=== PATIENT | female | born 1975 | race Caucasian/White ===

== ENCOUNTER 2019-09-12 16:36 | Emergency (ER) | payer MEDICAID, SELFPAY ==
[2019-09-12 16:42] VITALS: BP 159/104; PULSE 69; RESP 20; TEMP 36.9; O2SAT 98
--- NOTE | 2019-09-12 16:49 | ED.GENADUL_ITS ---
Discharge Plan Disposition Patient Disposition: HOME Condition: Stable Discharge Details Chief Complaint: Burn Clinical Impression: Burn Primary Care Provider: Leah Irwin ED Provider: Blair Vasquez Home Meds and New Rx's Prescriptions: New oxycodone 5 mg tablet 5 mg PO TID PRN (Reason: pain) Qty: 12 RF: 0 Discharge Instructions Instructions: Second Degree Burn (ED) Additional Instructions: if you have fevers, severe worsening of pain or spreading redness return to the emergency department you can take 1000mg tylenol and 600mg ibuprofen every 6 hours for pain as needed Medical Decision Making 44 yo female with no chronic medical problems comes in with chief complaint of burn. Was making pasta when water spilled and got on her left arm and abdomen causing superficial partial thicknes. She has 5% bsa of her abdomen and 3% on her left psoterior foremarm. NO joint involvement, normal sensation and pulses. Advised on wound care and return precautions given Differential Diagnosis Differential Diagnosis: superficial burn, partial thickness burn HPI General Mode of arrival: ambulatory . Date/Time Provider Initiated Documentation: 09/12/19 16:37 . Limitations to Documentation: no limitations . Information obtained by: patient . History of Present Illness 44 year old F presents to the emergency department with the chief complaint of burn, described as moderate, and it has been constant. No relieving factors improve symptom(s), No exacerbating factors reported . Related Data Home Medications Medication Instructions Recorded Confirmed oxycodone 5 mg PO TID PRN #12 tab 09/12/19 Previous Rx's Medication Instructions Recorded oxycodone 5 mg PO TID PRN #12 tab 09/12/19 Allergies Allergy/AdvReac Type Severity Reaction Status Date / Time No Known Allergies Allergy Unverified 09/12/19 16:44 General Stated Complaint: Burn KERWIN: 3 Review of Systems All systems reviewed & are unremarkable except as noted in HPI and below Constitutional Constitutional: Denies chills, Denies fever(s) and Denies weakness Cardiovascular Cardiovascular: Denies chest pain and Denies dyspnea Respiratory Respiratory: Denies dyspnea Gastrointestinal Gastrointestinal: Denies abdominal pain, Denies nausea and Denies vomiting Musculoskeletal Musculoskeletal: Denies joint swelling Neurologic Neurologic: Denies weakness PFSH Social History Smoking/Tobacco Use Status: Never Drug use: Never Do you feel safe at home: Yes Do you feel safe in your relationship?: Yes Exam Const General: no acute distress Orientation: alert [facility] Head: normal to inspection Ears: external ears normal General nose exam: external nose normal Mouth: moist mucous membranes Eyes General: appearance normal, both eyes and all related structures Neck Neck: normal visual inspection Resp Effort & Inspection: normal respiratory effort and able to speak in complete sentences Cardio Rate: regular rate Skin General skin exam: elasticity normal Neuro General: alert and oriented x3 Extrem General: normal to inspection Psych Mental Status: mental status grossly normal Course Vital Signs Vital signs: Vital Signs Temperature 36.9 C 09/12/19 16:42 Pulse 69 09/12/19 16:42 Respiratory Rate 20 09/12/19 16:42 Blood Pressure 159/104 H 09/12/19 16:42 Pulse Oximetry 98 09/12/19 16:42 Temperature 36.9 C 09/12/19 16:42 Temperature Source Skin 09/12/19 16:42 Pulse 69 09/12/19 16:42 Respiratory Rate 20 09/12/19 16:42 Blood Pressure 159/104 H 09/12/19 16:42 Pulse Oximetry 98 09/12/19 16:42 Oxygen Delivery Method Room Air 09/12/19 16:42 Oxygen Flow Rate 0 09/12/19 16:42 Pain Level 7 09/12/19 16:42
[2019-09-12] MEDS: oxyCODONE 5 MG TAB PO (17:02)
== END 2019-09-12 17:13 | disposition home or self-care (01) ==
PROVIDERS: Emergency Provider Emergency Medicine; PCP Family Medicine
DX: T21.22XA Burn of second degree of abdominal wall, initial encounter (principal); T22.212A Burn of second degree of left forearm, initial encounter; T31.0 Burns involving less than 10% of body surface; X11.8XXA Contact with other hot tap-water, initial encounter
CPT/HCPCS: 16020

== ENCOUNTER 2021-02-28 13:54 | Outpatient (REF) | payer MEDICAID, SELFPAY ==
[2021-02-28 16:10] LABS: Anion Gap 9.8 mmol/L (3-11); BUN 12 mg/dL (7-18); CO2 25.2 mmol/L (21.0-32.0); CREATININE 0.7 mg/dL (0.55-1.02); Calcium 8.8 mg/dL (8.5-10.1); Calculated LDL 112 mg/dL (<100); Chloride 104 mmol/L (98-107); Cholesterol 170 mg/dL (<200); Glucose 96 mg/dL (74-106); HDL Cholesterol 39 mg/dL (40-60); Potassium 4.2 mmol/L (3.5-5.1); Sodium 139 mmol/L (136-145); Triglyceride 96 mg/dL (<150)
[2021-02-28 16:24] LABS: Hemoglobin A1C 5.7 % (<5.7)
== END 2021-02-28 13:55 | disposition home or self-care (01) ==
LOC: NCHCN 13:54
PROVIDERS: PCP Family Medicine; Visit Provider Family Medicine
DX: R73.03 Prediabetes (principal); E66.9 Obesity, unspecified
CPT/HCPCS: 80048; 80061; 83036

== ENCOUNTER 2021-03-07 15:58 | Outpatient (REF) | payer MEDICAID, SELFPAY ==
[2021-03-07 17:22] LABS: HCT 41.3 % (36.0-46.0); MCHC 33.9 % (32.0-36.0); MCV 88.6 fL (80-95); MPV 10.4 fL (8.0-11.0); Platelet Count 325 10^3/uL (130-400); RBC 4.66 10^6/uL (3.93-5.22); RDW 12.4 % (11.7-14.6); RDW-SD 40.4 fL; WBC 9.69 10^3/uL (4.4-10.8)
[2021-03-07 17:43] LABS: Ferritin 96 ng/mL (8-252)
== END 2021-03-07 15:59 | disposition home or self-care (01) ==
LOC: NCHCN 15:58
PROVIDERS: PCP Family Medicine; Visit Provider Family Medicine
DX: N92.0 Excessive and frequent menstruation with regular cycle (principal)
CPT/HCPCS: 85027; 82728

== ENCOUNTER 2021-06-20 14:27 | Outpatient (REF) | payer MEDICAID, SELFPAY ==
[2021-06-20 18:56] LABS: TSH (W/Ref FT4) 1.05 uIU/mL (0.36-3.74)
== END 2021-06-20 14:28 | disposition home or self-care (01) ==
LOC: NCHCN 14:27
PROVIDERS: PCP Family Medicine; Visit Provider Family Medicine
DX: R63.5 Abnormal weight gain (principal)
CPT/HCPCS: 84443

== ENCOUNTER 2021-10-07 08:14 | Outpatient (CLI) | payer MEDICAID, SELFPAY ==
--- NOTE | 2021-10-07 | DI.US_ITS ---
Exam(s) US PELVIS TRANSVAGINAL EXAM: US PELVIS TRANSVAGINAL CLINICAL HISTORY: MENORRHAGIA, N92.0,DYSFUNCTIONAL UTERINE BLEEDING, N93.8. TECHNIQUE: Transabdominal and transvaginal pelvic ultrasound was performed using standard protocol. COMPARISON: US PELVIS TRANSVAG from 11/04/2016 FINDINGS: KIDNEYS: Kidneys are symmetric in size. No evidence of renal calculi. No evidence of hydronephrosis. No renal mass or cyst identified. UTERUS: Position: Anteverted. Size: 8.3 long by 4.9 AP by 5.5 transverse cm Endometrium: 0.5 cm. Normal for patient's menstrual status. Myometrium: Unremarkable. Cervix: 6 mm nabothian cyst. OVARIES: Right: 2.1 x 1.5 x 1.9 cm Cyst or mass: There is a 2 x 1.2 x 1.5 cm simple right paraovarian cyst. Left: 2.8 x 1 x 1.9 cm Cyst or mass: Small functional cysts are present. DOPPLER: Color: Symmetric and uniform flow to both ovaries. No hyperemia. Duplex: Normal ovarian arterial waveforms visualized. CUL-DE-SAC: Free fluid: None. Other: None. IMPRESSION: 1. Normal sonographic appearance of the kidneys. 2. Normal-appearing uterus with endometrial stripe within normal limits. 3. 2 cm simple right paraovarian cyst. DATA REPOSITORY:
== END 2021-10-07 08:34 ==
PROVIDERS: PCP Family Medicine; Visit Provider Physician Assistant Medical
DX: N92.0 Excessive and frequent menstruation with regular cycle (principal); N93.8 Other specified abnormal uterine and vaginal bleeding; N83.291 Other ovarian cyst, right side
CPT/HCPCS: 76830; 76856

== ENCOUNTER 2022-02-24 01:59 | Outpatient (CLI) | payer MEDICAID, SELFPAY ==
[2022-02-24 09:11] LABS: HGB 13.9 g/dL (11.2-15.7); MCH 29.8 pg (27.0-33.0); MCHC 33.1 % (32.0-36.0); MCV 90 fL (80-95); MPV 10.2 fL (8.0-11.0); Platelet Count 267 10^3/uL (130-400); RBC 4.67 10^6/uL (3.93-5.22); RDW 12.6 % (11.7-14.6); RDW-SD 41.1 fL; WBC 11.02 10^3/uL (4.4-10.8)
[2022-02-24 09:23] LABS: Source Nasal/Nares
[2022-02-24 12:59] LABS: COVID-19 PCR Negative (Negative)
== END 2022-02-24 02:00 | disposition home or self-care (01) ==
LOC: LBO 01:59
PROVIDERS: PCP Family Medicine; Visit Provider Obstetrics & Gynecology
DX: N92.4 Excessive bleeding in the premenopausal period; Z20.822 Contact with and (suspected) exposure to COVID-19; Z01.818 Encounter for other preprocedural examination; Z01.812 Encounter for preprocedural laboratory examination
CPT/HCPCS: 36415; 85027; 87635; 85014; 85018

== ENCOUNTER 2022-02-26 07:39 | Day surgery (SDC) | payer MEDICAID, SELFPAY ==
[2022-02-26 07:40] VITALS: BP 114/80; PULSE 72; RESP 18; TEMP 36.5; O2SAT 99
[2022-02-26] MEDS: Lactated Ringers 1,000 ML 125 ML IV (08:21)
--- NOTE | 2022-02-26 08:32 | ANES.PREOP_ITS ---
General Info Date of Service Date Performed: 02/26/22 Height: 4 ft 11 in Weight: 97.5 kg Body Mass Index (BMI): 43.4 Surgical Procedure: Operation Date: 02/26/22 09:10 Proposed Procedure Side Surgeon p Dilation & Curettage with Hysteroscopy Janell Shah MD s Endometrial Ablation Novasure Janell Shah MD Meds Allergies and Home Medications Allergies Allergy/AdvReac Type Severity Reaction Status Date / Time No Known Allergies Allergy Unverified 02/26/22 07:10 Home Medication Medication Instructions Recorded ibuprofen 800 mg tablet 800 mg PO Q8H #60 tab 02/06/22 Current Visit Medications: Current Medications Generic Name Dose Route Start Last Admin Trade Name Freq PRN Reason Stop Dose Admin Ringer's Solution 1,000 mls @ 125 mls/hr 02/26/22 06:00 02/26/22 08:21 IV 03/27/22 23:59 125 mls/hr INFUSION LOUISE Administration IV Miscellaneous Supplies 1 each 02/26/22 06:00 Iv Access IV 03/27/22 23:59 DIRECTED LOUISE Sodium Chloride 0 ml 02/26/22 06:00 Normal Saline Flush 10 Ml Syr IV 03/27/22 23:59 PRN PRN Sodium Chloride 0 ml 02/26/22 06:00 Normal Saline 10 Ml Vial IJ 03/27/22 23:59 DIRECTED PRN Sterile Water 0 ml 02/26/22 06:00 Water,Injection,Sterile 10 Ml Vial IJ 03/27/22 23:59 DIRECTED PRN PFSH Active Problems Active Problems: Problem Status Onset Code Perimenopausal menorrhagia N92.4 Medical History Medical History Cyst of left ovary Surgical History Surgical History H/O dilation and curettage H/O tubal ligation History of cholecystectomy Hx of tonsillectomy Tobacco Smoking/Tobacco Use Status: Never Alcohol Alcohol Intake: never Substance Use Substance use: Never Substance use type: does not use Prental History History 2 Para Hx # Term Pregnancies 2 Multiple births Hx # Pregnancies Ectopic pregnancies AB induced Hx Number of Living Children AB spontaneous Past Pregnancies Del. Date GA/Weeks # Outcome Route Wgt Sex Labor Lgth Anesthes ia Location Prov Complic 02/26/02 42 No Successful vaginal 4025.632 g Male 1.[address] Irwin 07/09/15 40 No Successful vaginal 3572.04 g Female [address] Irwin Delivery Date: 02/26/02 Last Updated by: Liz Donis no complications delivered at [facility] Delivery Date: 07/09/15 Last Updated by: Liz Donis no complications, delivered at [facility] Vital Signs and Lab Results Vital Signs Most Recent Vital Signs in EMR: Most Recent Vital Signs Temp Pulse Resp BP Pulse Ox 36.5 C 72 18 114/80 99 02/26/22 07:40 02/26/22 07:40 02/26/22 07:40 02/26/22 07:40 02/26/22 07:40 Point of Care Results Point of Care Results: POC- Test(urine) Positive 02/26/22 08:14 Lab Results Blood Type / Crossmatch: No Data to Display Complete Blood Count: White Blood Count 11.02 10^3/uL (4.4-10.8) H 02/24/22 08:43 02/24/22 Red Blood Count 4.67 10^6/uL (3.93-5.22) 02/24/22 08:43 02/24/22 Hemoglobin 13.9 g/dL (11.2-15.7) 02/24/22 08:43 02/24/22 Hematocrit 42.0 % (36.0-46.0) 02/24/22 08:43 02/24/22 Platelet Count 267 10^3/uL (130-400) 02/24/22 08:43 02/24/22 Complete Metabolic Panel: No Data to Display Liver Function Panel: No Data to Display Coagulation Panel: No Data to Display Cardiac Panel: No Data to Display Arterial Blood Gas: No Data to Display Venous Blood Gas: No Data to Display Pancreas Panel: No Data to Display Thyroid Panel: No Data to Display Infectious Disease: Coronavirus (COVID-19)(PCR) Negative (Negative) 02/24/22 09:04 02/24/22 Coronavirus 2019 Source Nasal/Nares 02/24/22 09:04 02/24/22 Blood Cultures: No Data to Display Toxicology Panel: No Data to Display Panel: No Data to Display Anesthesia Assessment and Plan Anesthesia History Personal History: No History of Anesthesia Complications Family History: No Family History of Anesthesia Complications Exercise Tolerance Exercise Tolerance: Metabolic Equivalents>4 Pertinent Negatives Pertinent Negatives: No Symptoms of GERD, No Major Cardiovascular Symptoms or Complaints, No Major Pulmonary Symptoms or Complaints and No History of CVA/TIA Cardiac & Pulmonary Exam Cardiac Exam: Normal S1/S2 Heart Sounds Pulmonary Exam: Clear Bilateral Breath Sounds Implantable Cardiac Device Does patient have a Pacemaker or an ICD?: No Airway Exam Known Difficult Airway: No Mallampati Class: 2 Mouth Opening: Normal (> 3cm) Thyromental Distance: Greater than 3 cm Neck Range of Motion: Full ROM Neck Circumference: Normal Teeth Condition: Normal Dentition ASA Classification ASA Score: ASA 3 Emergency Case?: No NPO Status NPO Status: NPO Clears >2 hours, Solids >8 hours Status Status: Not Relevant due to Medical History Anesthesia Plan Resuscitation Status: Full Code Anesthesia Technique: General Anesthesia Airway Planned: Natural Airway Monitors Used: Standard Monitors
--- NOTE | 2022-02-26 10:08 | ENDOMET_PTH ---
PATIENT: Jenny Viveros LOC: [facility] U#:[id number] AGE/SX: 46/F ROOM: RE02/26/[address]: Janell Shah MD : [id number] BED: DIS: 02/26/2022 SPEC #: [id number] RECD: 02/26/22 11:46 STATUS: ERIN REQ #: [id number] MIAN: 02/26/22 10:[address]: Janell Shah DEPT: Surgical Specimen RECD BY: Jose Roberto Ramírez ENTERED: 02/26/22 11:47 SP TYPE: Endomet OTHR DR: Leah Irwin Tissues: 1 - ENDOMETRIUM BX/INDU Procedures: GROSS AND MICRO LEVEL 4 Comments: [id number]
[2022-02-26 10:30] VITALS: BP 123/76; PULSE 75; RESP 16; TEMP 36; O2SAT 94
--- NOTE | 2022-02-26 10:32 | ROE_ITS ---
Operative Note Operative Note DATE OF PROCEDURE: 02/26/22 PRE-OP DIAGNOSIS: Abnormal uterine bleeding POST-OP DIAGNOSIS: same PROCEDURE: Hysteroscopy, dilation and curettage, Novasure endoemtrial ablation SURGEON: Janell Shah Refer to Anesthesia Record ESTIMATED BLOOD LOSS: 0 (minimal) PATHOLOGY: other (endometrial curettings) COMPLICATIONS: None Patient was transported to: same day Patient's condition: stable Indications: Abnormal uterine bleeding refractory to medical management with a LN-IUD Findings: Normal appearing external genitalia, vagina and cervix. Possible small endometrial polyp, copious endometrial tissue. Both ostia visualized. Procedure Description: After informed consent was signed the patient was taken to the operating room and given General room air anesthesia. SCDs were placed on her legs. She was prepped and draped in the dorsal lithotomy position in the Cristi stirrups. A time out was performed. Her bladder was drained of urine. Exam under anesthesia revealed normal external genitalia, vagina normal for age and a normal sized uterus. A speculum was placed into the vagina to reveal the cervix. The anterior lip of the cervix was grasped with a single tooth tenaculum. The cervix was dilated so the hysteroscope could be inserted. Visualziation of the endometrial cavity r eveal a possible small endometrial polyp on the posterior wall and thickened endometrial lining. The hysteroscope was removed and sharp curettage was performed with copious endometrial tissue collected. The cervix and uterus were then measured and the novasure device was used to measure cavity width and perform a cavity assessment. The device was then deployed for 87sec. The wand was removed and appeared fully charred. An attempt was made to visualize the endometrial cavity again but a piece of tissue at the internal os was creating hindrance to entering the cavity with the scope. From the cervix the cavity appeared well charred. The tenaculum was removed from the cervix with good hemostasis. The patient was placed back into the supine position. She was moved to the stretcher and taken to the recovery room in stable condition.
[2022-02-26 10:44] VITALS: BMI 43.4
[2022-02-26 11:10] VITALS: BP 126/82; PULSE 65; RESP 18; TEMP 36; O2SAT 99
--- NOTE | 2022-02-26 11:50 | W.ANESPOSTOP ---
Postoperative Evaluation Date, Time and Location Date Performed: 02/26/22 Time Performed: 11:50 Patient Location: Day Surgery Unit Vital Signs Most Recent Imported Vital Signs: Most Recent Vital Signs Temp Pulse Resp BP Pulse Ox 36 C L 65 18 126/82 99 02/26/22 11:10 02/26/22 11:10 02/26/22 11:10 02/26/22 11:10 02/26/22 11:10 Pain Score Most Recent Pain Score: Most Recent Pain Score Pain Level 5 02/26/22 11:10 Assessment Mental Status: Awake (Alert & Oriented to Patient Baseline) Airway and Respiratory Function: Patent airway with normal (patient baseline) respiratory exam Cardiovascular Function: Hemodynamically Stable Hydration Status: Adequately Hydrated Nausea & Vomiting: No Nausea or Vomiting Pain: Pain is tolerable per patient Peripheral Nerve Block: Patient did not receive a nerve block
== END 2022-02-26 12:05 | disposition home or self-care (01) ==
PROVIDERS: PCP Family Medicine; Visit Provider Obstetrics & Gynecology
PROC: 0UDB8ZZ Extraction of Endometrium, Via Natural or Artificial Opening Endoscopic (ICD-10-PCS; CPT 58558; principal; 2022-02-26 09:00)
PROC: (CPT 58353; 2022-02-26 09:00)
DX: N92.4 Excessive bleeding in the premenopausal period (principal); N84.1 Polyp of cervix uteri
CPT/HCPCS: 58563; 81025; 88305; J1100; J1885; J2250; J2405

== ENCOUNTER 2022-03-12 10:36 | Outpatient (REF) | payer MEDICAID, SELFPAY | END 2022-03-12 10:37 | disposition home or self-care (01) | LOC: LBN 10:36 | PROVIDERS: PCP Family Medicine; Visit Provider Obstetrics & Gynecology | DX: R30.0 Dysuria (principal) | CPT/HCPCS: 87086 ==

== ENCOUNTER 2022-08-13 11:48 | Outpatient (REF) | payer MEDICAID, SELFPAY ==
[2022-08-15 10:54] LABS: COVID-19 RT-PCR UVMMC Result Negative (Negative)
== END 2022-08-13 11:49 | disposition home or self-care (01) ==
LOC: LBN 11:48
PROVIDERS: PCP Family Medicine; Visit Provider Physician Assistant Medical
DX: Z20.822 Contact with and (suspected) exposure to COVID-19 (principal); J34.89 Other specified disorders of nose and nasal sinuses
CPT/HCPCS: U0003

== ENCOUNTER 2023-02-07 12:02 | Emergency (ER) | payer MEDICAID, SELFPAY ==
[2023-02-07 12:08] VITALS: BP 117/73; PULSE 91; RESP 18; TEMP 36.8; O2SAT 99
--- NOTE | 2023-02-07 12:20 | ED.GENADUL_ITS ---
Discharge Plan Disposition Patient Disposition: Home Condition: Stable Discharge Details Clinical Impression: Hand pain, left Primary Care Provider: Leah Irwin ED Provider: Blair Vasquez Home Meds and New Rx's Prescriptions: Continued ibuprofen 800 mg tablet 800 mg PO Q8H Qty: 60 1RF Discharge Instructions Instructions: Tendinitis (ED) Additional Instructions: your xray did not show concerning findings use the splint for comfort as needed if you still have pain in a week follow up with your primary care provider if you feel more ill, have severe worsening pain or new symptoms such as difficulty breathing return to the emergency department Medical Decision Making 47 yo female with no significant pmhx comes in with cc of 3 days of nontraumatic pain at the base of her left thumb. 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 She denies fevers or rashes. She arrives stable and appears well on exam. She localzies the pain to the thenar eminence of her left thumb. She has full rom of the thumb and other fingers as well as wrist with good strength. She has normal sensation, normal pulses and cap refill, no rashes or warmth. Suspect tendonitis vs arthritis, no findings to suggest infectious etiology or tendon injury and has not had any trauma to cause this, will obtain xrays to evaluate for possible fracture though unlikely given lack of trauma imaging unremarkable, pt stable, will treat as possible overuse vs tendonitis and provide splint, advised prn nsaids and f/u with pcp, return precautions given Differential Diagnosis Differential Diagnosis: tendonitis, arthritis, Imaging Data Radiologic Study: Attestation: I personally reviewed and interpreted this imaging study as follows: Imaging: X-Ray Radiologist's impression: no acute findings HPI General Mode of arrival: ambulatory . Date/Time Provider Initiated Documentation: 02/07/23 12:14 . Limitations to Documentation: no limitations . Information obtained by: patient . History of Present Illness 47 year old F presents to the emergency department with the chief complaint of left hand pain, described as moderate, Quality is described as aching, and is localized to the left and upper extremity. Patient reports no radiation. Patient started experiencing this day(s) (3) and it has been constant. Rest improves symptom(s), Movement worsens symptoms . Patient notes no other symptoms.. Patient did receive the following treatments prior to arrival, none Related Data Home Medications Medication Instructions Recorded Confirmed ibuprofen 800 mg tablet 800 mg PO Q8H #60 tabs 02/06/22 02/07/23 Previous Rx's Medication Instructions Recorded ibuprofen 800 mg tablet 800 mg PO Q8H #60 tabs 02/06/22 Allergies Allergy/AdvReac Type Severity Reaction Status Date / Time No Known Allergies Allergy Verified 02/07/23 12:08 General Stated Complaint: Orthopedic KERWIN: 4 Review of Systems All systems reviewed & are unremarkable except as noted in HPI and below Constitutional Constitutional: Denies chills and Denies fever(s) Cardiovascular Cardiovascular: Denies chest pain and Denies dyspnea Respiratory Respiratory: Denies cough and Denies dyspnea Gastrointestinal Gastrointestinal: Denies abdominal pain, Denies nausea and Denies vomiting Musculoskeletal Musculoskeletal: Denies joint swelling PFSH All Active Problems (Updated 02/07/23 @ 12:35 by Blair Vasquez MD) Hand pain, left (Acute) Urinary incontinence (Acute) Dysuria (Acute) Perimenopausal menorrhagia (Acute) Medical History Cyst of left ovary Surgical History H/O dilation and curettage H/O tubal ligation History of cholecystectomy Hx of tonsillectomy Family History Other Hypertension Social History Smoking/Tobacco Use Status: Never Smoking risk assessment performed?: Yes Alcohol Intake: never Drug use: Never Substance use type: does not use Household members: family Housing: house Number of Children: 2 Communication Needs: None Sexually active: Yes Do you think of yourself as: straight/heterosexual Current gender identity: female What is your relationship status?: Panel score (0-1 are the most socially isolated patients): 1 What type of physical activity do you participate in: walking Duration: 30-45 minutes/day Frequency: daily Special nino needs: No Agree to transfusion: Yes Helmet use: Yes 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 Date GA/Weeks # Preg Succ Route Wgt Sex Labor Lgth Anesth esia Location [facility] 02/26/02 42 No vaginal 4025.632 g Male 1.[address] Irwin 07/09/15 40 No vaginal 3572.04 g Female [address] Irwin Delivery Date: 02/26/02 Last Updated by: Liz Donis no complications delivered at [facility] Delivery Date: 07/09/15 Last Updated by: Liz Donis no complications, delivered at [facility] Exam Const General: no acute distress Orientation: alert HENMT Head: normal to inspection Ears: external ears normal General nose exam: external nose normal Mouth: moist mucous membranes Eyes General: appearance normal, both eyes and all related structures Neck Neck: normal visual inspection Resp Effort & Inspection: normal respiratory effort and able to speak in complete sentences Cardio Rate: regular rate Skin General skin exam: no rashes or lesions noted Neuro General: patient alert and patient oriented x3 Extrem General: normal to inspection, full ROM and capillary refill normal Psych Mental Status: mental status grossly normal Course Vital Signs Vital signs: Vital Signs Temperature 36.8 C 02/07/23 12:08 Pulse 91 H 02/07/23 12:08 Respiratory Rate 18 02/07/23 12:08 Blood Pressure 117/73 02/07/23 12:08 Pulse Oximetry 99 02/07/23 12:08 Temperature 36.8 C 02/07/23 12:08 Temperature Source Temporal Artery Scan 02/07/23 12:08 Pulse 91 H 02/07/23 12:08 Respiratory Rate 18 02/07/23 12:08 Respiratory Effort Normal, Non-Labored 02/07/23 12:07 Blood Pressure 117/73 02/07/23 12:08 Pulse Oximetry 99 02/07/23 12:08 Oxygen Delivery Method Room Air 02/07/23 12:08 Oxygen Flow Rate 0 02/07/23 12:08
[2023-02-07] MEDS: Ibuprofen 600 MG TAB PO (12:26)
--- NOTE | 2023-02-07 13:26 | DI.VRAD_ITS ---
PROCEDURE INFORMATION: Exam: XR Left Hand Exam date and time: 02/07/2023 12:35 PM Age: 47 years old Clinical indication: Pain; Hand; Left TECHNIQUE: Imaging protocol: Radiologic exam of the left hand. Views: 3 or more views. COMPARISON: No relevant prior studies available. FINDINGS: Bones/joints:Question chronic deformity 5th metacarpal. No acute fracture or dislocation Soft tissues: Normal. IMPRESSION: No acute findings. Dictated and Authenticated by: Jake Antonio MD. Ordering:LYNDSAY Pinto MD
--- NOTE | 2023-02-07 13:30 | DI.RAD_ITS ---
Exam(s) XR HAND LT COMPLETE EXAM: XR HAND LT COMPLETE CLINICAL HISTORY: PAIN. TECHNIQUE: 2D digital imaging was performed. COMPARISON: No exams were available for comparison FINDINGS: 3 views No evidence of acute fracture or dislocation or abnormal soft tissue calcifications. No radiopaque f oreign body. Small osteophytic density adjacent to the ulnar styloid does not have acute appearance. IMPRESSION: No acute osseous findings DATA REPOSITORY: RADIATION DOSE DELIVERED:
[2023-02-07 13:50] VITALS: BP 132/74; PULSE 87; RESP 18; O2SAT 98
== END 2023-02-07 13:52 | disposition home or self-care (01) ==
PROVIDERS: Emergency Provider Emergency Medicine; PCP Family Medicine
DX: M79.642 Pain in left hand (principal)
CPT/HCPCS: 99283; 73130

== ENCOUNTER 2024-02-18 20:23 | Emergency (ER) | payer MEDICAID, SELFPAY ==
[2024-02-18 20:29] VITALS: BP 122/88; PULSE 99; RESP 18; TEMP 37; O2SAT 100
--- NOTE | 2024-02-18 21:07 | ED.GENADUL_ITS ---
Discharge Plan Disposition Patient Disposition: Home Condition: Good Discharge Details Clinical Impression: URI (upper respiratory infection) Primary Care Provider: Leah Irwin ED Provider: Jimi Baltazar Home Meds and New Rx's Prescriptions: New loratadine 10 mg tablet 10 mg PO DAILY Qty: 10 0RF Saline Mist 0.65 % aerosol,spray 2 spray intranasal QID PRNQty: 44 0RF Discharge Instructions Instructions: Upper Respiratory Infection (ED) Additional Instructions: At this time your strep test, COVID, flu, and RSV test are negative. Thankfully there is no evidence of infection in your ears at this time, but you do have a small amount of fluid. Please take Tylenol and Motrin to help decrease the inflammation. Please take the loratadine as prescribed to help reduce the allergic component. Please use the saline mist nasal spray 4 times per day to help decrease your nasal congestion. If you notice any worsening of your sympt oms, or any new symptoms such as vomiting, diarrhea, fever, chills, shortness of breath, chest pain, numbness, weakness, or fainting , please return immediately to the emergency department for reevaluation. Please follow up with your primary care provider as soon as possible for reassessment and reevaluation. As always, it was a pleasure participating in your medical care today. Referrals: Leah Irwin MD [Primary Care Provider] - [facility] General Date/Time Provider Initiated Documentation: 02/18/24 20:26 . [facility] Narrative: 48-year-old female with no significant past medical history presents today for evaluation of sore throat and congestion. Patient states that for the last 3 days she has had runny nose, congestion, sore throat, and mild ear pressure. She denies fever or chills. She does admit to mild cough. She denies chest pain or shortness of breath. No other complaints at this time. She takes Tylenol and this improves her sore throat symptoms. She is not taking any other medications. Related Data Home Medications Medication Instructions Recorded Confirmed loratadine 10 mg tablet 10 mg PO DAILY #10 tabs 02/18/24 sodium chloride 0.65 % nasal spray 2 spray intranasal QID PRN #44 mL 02/18/24 aerosol (Saline Mist) Previous Rx's Medication Instructions Recorded loratadine 10 mg tablet 10 mg PO DAILY #10 tabs 02/18/24 sodium chloride 0.65 % nasal spray 2 spray intranasal QID PRN #44 mL 02/18/24 aerosol (Saline Mist) Allergies Allergy/AdvReac Type Severity Reaction Status Date / Time No Known Allergies Allergy Verified 11/15/23 10:09 General Stated Complaint: Sorethroat KERWIN: 4 Review of Systems All systems reviewed & are unremarkable except as noted in HPI and below Exam Narrative Exam Narrative: 1.Const: Well-nourished, Well-developed, appearing stated age 2.Eyes: PERRL, no conjunctival injection, and symmetrical lids. 3.ENT: Atraumatic external nose and ears. Moist MM. Neck: Symmetric, trachea midline, No thyromegaly. Minimal effusion behind the left tympanic membrane with a single bubble. Effusion is serous. No purulence. No bulging. No injection or erythema. Minimal erythema in the posterior oropharynx with cobblestoning, no tonsillar enlargement whatsoever. Patient demonstrates good movement of cervical neck. There is no nuchal rigidity, no nuchal tenderness. Patient is able to flex the neck without any difficulty or significant pain. Negative Kernig's and Brudzinski sign. No tenderness on percussion of the frontal or maxillary sinuses. 4.CVS: +S1/S2, No murmurs or gallops. Peripheral pulses 2+ and equal in all extremities. Brisk capillary refill in all extremities. 5.RESP: Unlabored respiratory effort. Clear to auscultation bilaterally. No wheezes rales or rhonchi 6.GI: Soft, Nontender/Nondistended, No hepatosplenomegaly. No guarding or rebound. 7.MSK: Normocephalic/Atraumatic, Extremities w/o deformity or ttp No cyanosis or clubbing, Normal movement of all extremities 8.Skin: Warm, Dry. No rashes or lesions. 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 Sensation grossly intact, no focal neurologic deficits. 10.Psych: (AAO) x3. Appropriate mood and affect Course Vital Signs Vital signs: Vital Signs Temperature 37.0 C 02/18/24 20:29 Pulse 99 H 02/18/24 20:29 Respiratory Rate 18 02/18/24 20:29 Blood Pressure 122/88 02/18/24 20:29 Pulse Oximetry 100 02/18/24 20:29 Temperature 37.0 C 02/18/24 20:29 Temperature Source Temporal Artery Scan 02/18/24 20:29 Pulse 99 H 02/18/24 20:29 Respiratory Rate 18 02/18/24 20:29 Respiratory Effort Normal 02/18/24 20:35 Blood Pressure 122/88 02/18/24 20:29 Blood Pressure Position Sitting 02/18/24 20:29 Pulse Oximetry 100 02/18/24 20:29 Oxygen Delivery Method Room Air 02/18/24 20:29 Oxygen Flow Rate 0 02/18/24 20:29 Pain Level 3 02/18/24 20:29 Comment When swallow, pain in throat. Has adenoids and tonsils removed. 02/18/24 20:29 Lab/Test Results Lab/Test Results: POC Strep Test-[facility](Rapid) Start: 02/18/24 20:40 Freq: .Rapid Strep Test Status: Active Protocol: Document 02/18/24 20:[address] (Rec: 02/18/24 20:[address] [id number]) Strep test-[facility](Rapid)-POC POC-Strep test-[facility] (Rapid) Negative POC-Strep test-[facility] (Rapid) Negative Medical Decision Making 48-year-old female with no significant past medical history presents today for evaluation of sore throat and congestion. Patient states that for the last 3 days she has had runny nose, congestion, sore throat, and mild ear pressure. She denies fever or chills. She does admit to mild cough. She denies chest pain or shortness of breath. No other complaints at this time. She takes Tylenol and this improves her sore throat symptoms. She is not taking any other medications. Exam demonstrates well-appearing female, unremarkable posterior oropharynx aside from minimal cobblestoning. Single bubble with a small serous effusion behind the left tympanic membrane. No other abnormalities. Strep test was performed and is negative. COVID flu and RSV test negative. Symptoms inconsistent with pneumonia, purulent otitis media, strep, or other abnormality. Vital signs notably stable. No indication for antibiotics at this stage. Will recommend loratadine, saline nasal washes, and NSAID therapy at home. Suspect viral etiology is the primary cause. Discussed red flags for which to return. I have extensively reviewed the treatment plan and discharge instructions with the patient. I have addressed all patient concerns at this time. The patient was made aware of what symptoms to monitor for that would warrant a return to the emergency department. Discussed the plan with the patient, they demonstrate verbal understanding and agreement with our assessment and plan at this time. The documentation in this chart was dictated using Svpp[employer] dictation software. Please excuse any dictation errors. Quality:SDOH Health Related Social Needs: No Data to Display PFSH All Active Problems URI (upper respiratory infection) (Acute) Urinary incontinence (Acute) Dysuria (Acute) Perimenopausal menorrhagia (Acute) Medical History Cyst of left ovary Surgical History H/O dilation and curettage Hx of tonsillectomy History of cholecystectomy H/O tubal ligation Family History Other Hypertension Social History Smoking/Tobacco Use Status: Never Smoking risk assessment performed?: Yes Alcohol Intake: never Drug use: Never Substance use type: does not use Household members: family Housing: house Number of Children: 2 Communication Needs: None Sexually active: Yes Do you think of yourself as: straight/heterosexual Current gender identity: female What is your relationship status?: Panel score (0-1 are the most socially isolated patients): 1 What type of physical activity do you participate in: walking Duration: 30-45 minutes/day Frequency: daily Special nino needs: No Agree to transfusion: Yes Helmet use: Yes Drive intox or ride w/intox 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 Date GA/Weeks # Preg Succ Route Wgt Sex Labor Lgth Anesth esia Location [facility] 02/26/02 42 No vaginal 4025.632 g Male 1.[address] Irwin 07/09/15 40 No vaginal 3572.04 g Female [address] Irwin Delivery Date: 02/26/02 Last Updated by: Liz Donis no complications delivered at [facility] Delivery Date: 07/09/15 Last Updated by: Liz Donis no complications, delivered at [facility]
[2024-02-18 21:29] LABS: COVID-19 PCR Negative (Negative); Influenza A PCR Negative (Negative); Influenza B PCR Negative (Negative); RSV PCR Negative (Negative)
[2024-02-18 21:30] LABS: Source Nasopharynx
[2024-02-18] MEDS: Acetaminophen 500 MG TAB 1000 MG PO (22:01)
== END 2024-02-18 22:01 | disposition home or self-care (01) ==
PROVIDERS: Emergency Provider Student in an Organized Health Care Education/Training Program; PCP Family Medicine
DX: J06.9 Acute upper respiratory infection, unspecified (principal)
CPT/HCPCS: 87637; 87880; 99283

== ENCOUNTER 2024-02-20 09:49 | Emergency (ER) | payer MEDICAID, SELFPAY ==
[2024-02-20 09:55] VITALS: BP 145/84; PULSE 98; RESP 18; TEMP 36.6; O2SAT 98
--- NOTE | 2024-02-20 10:16 | ED.GENADUL_ITS ---
Discharge Plan Disposition Patient Disposition: Home Condition: Stable Discharge Details Clinical Impression: Acute viral syndrome, Acute viral pharyngitis Primary Care Provider: Leah Irwin ED Provider: Letty Santo Home Meds and New Rx's Prescriptions: New erythromycin 5 mg/gram (0.5 %) ointment 0.5 inch ophthalmic (eye) TID Qty: 3.5 0RF prednisone 20 mg tablet 40 mg PO DAILY Qty: 6 0RF Continued loratadine 10 mg tablet 10 mg PO DAILY Qty: 10 0RF Saline Mist 0.65 % aerosol,spray 2 spray intranasal QID PRNQty: 44 0RF Discharge Instructions Instructions: Upper Respiratory Infection (ED), Viral Syndrome (ED) Additional Instructions: I suspect you have a viral syndrome, this is likely viral conjunctivitis but it is still contagious, the erythromycin ointment likely will not help so if you are not having improvement in 48 hours I recommend discontinuing the erythromycin ointment, wash your hands frequently as this is very contagious Take the prednisone as prescribed, this will likely help your sore throat and your breathing Please be reevaluated in 5 days with persistent symptoms but I suspect you will feel improved at this time Take Tylenol and ibuprofen for discomfort and return earlier should you have chest pain, shortness of breath, or any new or worsening symptoms Stand Alone Forms: Work Release Referrals: Leah Irwin MD [Primary Care Provider] - Discharge Data Discharge Date/Time-TO BE ENTERED AT DEPARTURE: 02/20/24 10:33 HPI General Date/Time Provider Initiated Documentation: 02/20/24 09:51 . HPI Narrative: This 48-year-old female presents with report of difficulty swallowing secondary to discomfort, drainage from bilateral eyes with crusting of her lids this morning, and persistent cough. She states she was seen in the emergency department several days ago and told she had a viral syndrome. She presents predominantly secondary to sore throat this morning. Denies chest pain or shortness of breath. Denies any fever or chills. Related Data Home Medications Medication Instructions Recorded Confirmed loratadine 10 mg tablet 10 mg PO DAILY #10 tabs 02/18/24 sodium chloride 0.65 % nasal spray 2 spray intranasal QID PRN #44 mL 02/18/24 aerosol (Saline Mist) erythromycin 5 mg/gram (0.5 %) eye 0.5 inch ophthalmic (eye) TID #3.5 02/20/24 ointment grams prednisone 20 mg tablet 40 mg (2 x 20 mg) PO DAILY #6 tabs 02/20/24 Previous Rx's Medication Instructions Recorded loratadine 10 mg tablet 10 mg PO DAILY #10 tabs 02/18/24 sodium chloride 0.65 % nasal spray 2 spray intranasal QID PRN #44 mL 02/18/24 aerosol (Saline Mist) erythromycin 5 mg/gram (0.5 %) eye 0.5 inch ophthalmic (eye) TID #3.5 02/20/24 ointment grams prednisone 20 mg tablet 40 mg (2 x 20 mg) PO DAILY #6 tabs 02/20/24 Allergies Allergy/AdvReac Type Severity Reaction Status Date / Time No Known Allergies Allergy Verified 02/20/24 09:57 General Stated Complaint: RespSymp KERWIN: 3 Exam Narrative Exam Narrative: Pupils equal round reactive to light and accommodation, conjunctival injection with drainage noted, lungs clear to auscultation bilaterally, cardiac rate rhythm regular, no abdominal tenderness, no rebound or guarding, alert and oriented x 4, Course Vital Signs Vital signs: Vital Signs Temperature 36.6 C 02/20/24 09:55 Pulse 98 H 02/20/24 09:55 Respiratory Rate 18 02/20/24 09:55 Blood Pressure 145/84 H 02/20/24 09:55 Pulse Oximetry 98 02/20/24 09:55 Temperature 36.6 C 02/20/24 09:55 Temperature Source Skin 02/20/24 09:55 Pulse 98 H 02/20/24 09:55 Respiratory Rate 18 02/20/24 09:55 Respiratory Effort Normal 02/20/24 10:05 Respiratory Depth Normal 02/20/24 10:05 Blood Pressure 145/84 H 02/20/24 09:55 Blood Pressure Position Sitting 02/20/24 09:55 Pulse Oximetry 98 02/20/24 09:55 Oxygen Delivery Method Room Air 02/20/24 09:55 Oxygen Flow Rate 0 02/20/24 09:55 Medical Decision Making 48-year-old female well in appearance presenting with likely viral conjunctivitis, no respiratory distress, oropharynx patent, uvula midline, no erythema noted, suspect viral etiology, viral pharyngitis, will treat with prednisone for discomfort although I do suspect the conjunctivitis is viral nature and she is made aware of this. Did supply work note for the next 2 days Patient is in no acute distress, her vitals are stable and she feels comfortable with discharge home at this time. She is meanings retaining secretions able to tolerate p.o. return precautions reviewed and patient expressed understanding I spent approximately 5 minutes reviewing patient's prior visit from 426 diagnosed with viral symptoms. Quality:SDOH Health Related Social Needs: No Data to Display PFSH All Active Problems (Updated 02/20/24 @ 10:17 by MALIKA Felix) Acute viral pharyngitis (Acute) Acute viral syndrome (Acute) URI (upper respiratory infection) (Acute) Urinary incontinence (Acute) Dysuria (Acute) Perimenopausal menorrhagia (Acute) Medical History Cyst of left ovary Surgical History H/O dilation and curettage Hx of tonsillectomy History of cholecystectomy H/O tubal ligation Family History Other Hypertension Social History Smoking/Tobacco Use Status: Never Smoking risk assessment performed?: Yes Alcohol Intake: never Drug use: Never Substance use type: does not use Household members: family Housing: house Number of Children: 2 Communication Needs: None Sexually active: Yes Do you think of yourself as: straight/heterosexual Current gender identity: female What is your relationship status?: Panel score (0-1 are the most socially isolated patients): 1 What type of physical activity do you participate in: walking Duration: 30-45 minutes/day Frequency: daily Special nino needs: No Agree to transfusion: Yes Helmet use: Yes Drive intox or ride w/intox 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 Date GA/Weeks # Preg Succ Route Wgt Sex Labor Lgth Anesth esia Location Prov Complic 02/26/02 42 No vaginal 4025.632 g Male 1.[address] Irwin 07/09/15 40 No vaginal 3572.04 g Female [address] Irwin Delivery Date: 02/26/02 Last Updated by: Liz Donis no complications delivered at [facility] Delivery Date: 07/09/15 Last Updated by: Liz Donis no complications, delivered at [facility]
[2024-02-20] MEDS: predniSONE 20 MG TAB 40 MG PO (10:27)
== END 2024-02-20 10:33 | disposition home or self-care (01) ==
PROVIDERS: Emergency Provider Physician Assistant; PCP Family Medicine
DX: B34.9 Viral infection, unspecified (principal); J02.8 Acute pharyngitis due to other specified organisms; B30.9 Viral conjunctivitis, unspecified
CPT/HCPCS: 99283; J7512

== ENCOUNTER 2025-04-05 18:44 | Emergency (ER) | payer MEDICAID, SELFPAY ==
[2025-04-05 18:48] VITALS: BP 121/94; PULSE 111; RESP 16; TEMP 36.4; O2SAT 96
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
[2025-04-05] MEDS: Acetaminophen 500 MG TAB (20:05)
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
--- NOTE | 2025-04-05 20:17 | DI.VRAD_ITS ---
PROCEDURE INFORMATION: Exam: XR Chest Exam date and time: 04/05/2025 7:37 PM Age: 50 years old Clinical indication: Cough TECHNIQUE: Imaging protocol: Radiologic exam of the chest. Views: 2 views. COMPARISON: No relevant prior studies available. FINDINGS: Lungs: The lungs are clear. No consolidative radiopacities. Pleural spaces: No pleural effusion. No pneumothorax. Heart/Mediastinum: The heart is normal size. Bones/joints: Unremarkable. IMPRESSION: No acute cardiopulmonary findings. Dictated and Authenticated by: Alma Howard MD. Orderin Amor Burrell MD
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
[2025-04-05 21:02] VITALS: BP 136/97; PULSE 87; RESP 16; O2SAT 97
== END 2025-04-05 21:13 | disposition home or self-care (01) ==
PROVIDERS: Emergency Provider Physician Assistant; PCP Family Medicine
DX: S60.222A Contusion of left hand, initial encounter (principal); S09.8XXA Other specified injuries of head, initial encounter; V47.5XXA Car driver injured in collision with fixed or stationary object in traffic accident, initial encounter; Y99.0 Civilian activity done for income or pay
CPT/HCPCS: 99284; 70450; 71046; 73110; 73130

== ENCOUNTER 2025-04-19 18:26 | Emergency (ER) | payer MEDICAID, SELFPAY ==
[2025-04-19 18:29] VITALS: BP 129/80; PULSE 79; RESP 16; TEMP 36.6; O2SAT 98
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
--- NOTE | 2025-04-19 19:42 | DI.VRAD_ITS ---
PROCEDURE INFORMATION: Exam: XR Left Wrist Exam date and time: 04/19/2025 7:00 PM Age: 50 years old Clinical indication: Pain; Wrist; Left; Additional info: Worsening pain left lateral hand and right radial TECHNIQUE: Imaging protocol: Radiologic exam of the left wrist. Views: 3 or more views. COMPARISON: CR XR WRIST LT COMPLETE 04/05/2025 7:39 PM FINDINGS: Bones/joints: Chronic tiny ununited ulnar styloid avulsion fracture. Minimal chronic appearing ulnar plus deformity. No acute fracture or subluxation. Soft tissues: Unremarkable. IMPRESSION: No acute bony pathology. Dictated and Authenticated by: Jackie Stallworth MD. Orderin aGl Saenz MD
[2025-04-19 20:17] VITALS: RESP 18
--- NOTE | 2025-04-23 09:23 | NUR.NOTE ---
Access chart to print demographic sheet for [facility] billing. Nursing Note:
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
== END 2025-04-19 20:17 | disposition home or self-care (01) ==
PROVIDERS: Emergency Provider Physician Assistant; PCP Family Medicine
DX: S66.912A Strain of unspecified muscle, fascia and tendon at wrist and hand level, left hand, initial encounter (principal); V47.5XXA Car driver injured in collision with fixed or stationary object in traffic accident, initial encounter
CPT/HCPCS: 99283; 99284; 73110; 73130

== ENCOUNTER 2025-05-16 10:01 | Outpatient (CLI) | payer MEDICAID, SELFPAY ==
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
== END 2025-05-16 10:21 ==
LOC: DI 10:01
PROVIDERS: PCP Family Medicine; Visit Provider Family Medicine
DX: R93.89 Abnormal findings on diagnostic imaging of other specified body structures (principal)
CPT/HCPCS: 71046